=== PATIENT | male | born 1970 | race Hispanic/Latino ===

== ENCOUNTER 2017-03-17 13:01 | Outpatient (CLI) | payer OTHER ==
--- NOTE | 2017-03-17 13:37 | XRay Report ---
XRAY RIGHT SHOULDER 2 VIEWS: 03/17/17 13:01:00 CLINICAL: Right shoulder pain. FINDINGS: Normal glenohumeral alignment. Normal AC joint. No fracture or dislocation. The subglenoid scapula appears sclerotic with irregular inferior margin on the AP view. This is not corroborated on an axillary lateral view. Numerous surgical clips are identified in the supraclavicular soft tissues. IMPRESSION: A questionable sclerotic scapular lesion with a suspicious irregular cortical margin on one view. Consider additional imaging of the scapula, particularly if there is a known history of cancer.
== END 2017-03-17 13:02 | disposition home or self-care (01) ==
LOC: SPVIMAG 13:01
PROVIDERS: ATTEND Orthopaedic Surgery
DX: M75.81 Other shoulder lesions, right shoulder (principal); M25.511 Pain in right shoulder